=== PATIENT | male | born 1975 | race Caucasian/White ===

== ENCOUNTER 2019-01-30 10:31 | Emergency (ER) | payer MEDICARE ==
[~2019-01-30] VITALS: Ht 172.7 cm; Wt 106.8 kg
[2019-01-30] MEDS ORDERED: OFLOXACIN0.3 % OU (10:50)
[2019-01-30] MEDS ORDERED: DOXYCYC MONO100 M2 PO (10:50)
[2019-01-30 11:36] VITALS: BP 132/80
== END 2019-01-30 11:33 | disposition home or self-care (01) ==
LOC: ED 10:31
DX: J06.9 Acute upper respiratory infection, unspecified (principal); H10.9 Unspecified conjunctivitis; F17.210 Nicotine dependence, cigarettes, uncomplicated